=== PATIENT | male | born 1950 | race Caucasian/White ===

== ENCOUNTER 2021-02-13 08:53 | Observation (INO) | payer OTHER ==
[~2021-02-13] VITALS: Ht 190.5 cm; Wt 111.1 kg
[~2021-02-13 08:53] MED LIST: ASPIR 8181 MG PO; LOPRESSOR 25 MG25 MG PO; PANTOPRAZOLE SO40 MG PO; PRAVACHOL40 MG PO; TENORMIN 25 MG25 MG PO
[2021-02-13 09:54] LABS: HEMOGLOBIN 14.4 gm/dl (14.0-17.5); RED BLOOD COUNT 4.73 M/UL (4.20-5.50); WHITE BLOOD COUNT 4.9 K/UL (4.5-11.0)
[2021-02-13 10:25] LABS: BUN/CREATININE RATIO 15 (0-10)
[2021-02-13] MEDS ORDERED: ATENOLOL25 MG PO (14:35)
[2021-02-14 03:45] LABS: HEMOGLOBIN 14.6 gm/dl (14.0-17.5); RED BLOOD COUNT 4.81 M/UL (4.20-5.50)
[2021-02-14 04:29] LABS: BUN/CREATININE RATIO 13 (0-10)
[2021-02-14] MEDS ORDERED: CLOPIDOGREL75 MG PO (16:42)
[2021-02-14] MEDS ORDERED: ATORVASTATIN CA20 MG PO (16:42)
== END 2021-02-14 18:28 | disposition home or self-care (01) ==
LOC: ER1 08:53 → CDU 12:16 → MED SURG 4 12:16
PROVIDERS: Emergency Medicine; Physician Assistant; ADMIT Internal Medicine
DX: I63.9 Cerebral infarction, unspecified (principal); G83.24 Monoplegia of upper limb affecting left nondominant side; R29.701 NIHSS score 1; I48.0 Paroxysmal atrial fibrillation; I44.7 Left bundle-branch block, unspecified; I44.30 Unspecified atrioventricular block; I10 Essential (primary) hypertension; E78.5 Hyperlipidemia, unspecified; E78.00 Pure hypercholesterolemia, unspecified; K21.9 Gastro-esophageal reflux disease without esophagitis; Z20.822 Contact with and (suspected) exposure to COVID-19; Z86.73 Personal history of transient ischemic attack (TIA), and cerebral infarction without residual deficits; Z79.82 Long term (current) use of aspirin; Z79.899 Other long term (current) drug therapy
CPT/HCPCS: ECHO; 36415; 70450; 70496; 70498; 70551; 71045; 80053; 82550; 82553; 83735; 84439; 84443; 84484; 85025; 85610; 85730; 93005; 93306; 93880; 97161; 99285; G0378; Q9967; U0002

== ENCOUNTER 2021-12-31 11:13 | Inpatient (IN) | payer OTHER ==
[~2021-12-31] VITALS: Ht 190.5 cm; Wt 108.0 kg
[~2021-12-31 11:13] MED LIST changes: +ATENOLOL25 MG PO; +ATORVASTATIN CA20 MG PO; +CLOPIDOGREL75 MG PO
[2021-12-31 12:18] LABS: HEMOGLOBIN 16.4 gm/dl (14.0-17.5); RED BLOOD COUNT 5.38 M/UL (4.20-5.50); WHITE BLOOD COUNT 6.2 K/UL (4.5-11.0)
[2022-01-01 02:03] LABS: WHITE BLOOD COUNT 6.4 K/UL (4.5-11.0)
[2022-01-01 02:06] LABS: HEMOGLOBIN 13.7 gm/dl (14.0-17.5); RED BLOOD COUNT 4.52 M/UL (4.20-5.50)
[2022-01-01] MEDS ORDERED: PROTONIX 40 MG40 M1 PO (09:45)
[2022-01-01] MEDS ORDERED: ELIQUIS 5 MG TAB5 MG PO (12:31)
[2022-01-01] MEDS ORDERED: LOPRESSOR 25 MG25 MG PO (12:31)
== END 2022-01-01 14:30 | disposition home or self-care (01) | DRG 309 ==
LOC: ER1 11:13 → CDU 14:05 → PROG CARE 14:05
PROVIDERS: Emergency Medicine; Physician Assistant; ADMIT Internal Medicine
PROC: B24BZZZ Ultrasonography of Heart with Aorta (ICD-10-PCS; principal; 2022-01-01)
DX: I48.0 Paroxysmal atrial fibrillation (principal); N17.9 Acute kidney failure, unspecified; I44.2 Atrioventricular block, complete; I10 Essential (primary) hypertension; Z20.822 Contact with and (suspected) exposure to COVID-19; E78.5 Hyperlipidemia, unspecified; I27.20 Pulmonary hypertension, unspecified; K21.9 Gastro-esophageal reflux disease without esophagitis; Z86.73 Personal history of transient ischemic attack (TIA), and cerebral infarction without residual deficits; Z79.01 Long term (current) use of anticoagulants; Z90.49 Acquired absence of other specified parts of digestive tract; Z98.42 Cataract extraction status, left eye; Z98.41 Cataract extraction status, right eye; Z98.890 Other specified postprocedural states; Z80.1 Family history of malignant neoplasm of trachea, bronchus and lung
CPT/HCPCS: ECHO; 36415; 70450; 71045; 80053; 82550; 82553; 83735; 83880; 84439; 84443; 84484; 85025; 85379; 85610; 85730; 93005; 93306; 96374; 99285; J1650; U0002